=== PATIENT | female | born 1960 | race Caucasian/White ===

== ENCOUNTER 2017-09-30 00:12 | Emergency (ER) | payer MEDICAID ==
[~2017-09-30] VITALS: Ht 157.5 cm; Wt 71.4 kg
[2017-09-30 00:21] VITALS: Ht 157.5 cm; Wt 71.4 kg
[2017-09-30 00:49] LABS: BASOPHIL % 0.4 % (0-2); PLATELET COUNT 257 x10^3mcL (130-400); RED CELL DISTRIBUTION WIDTH 13.6 % (11.5-14.5)
[2017-09-30 01:08] LABS: CALCIUM 8.8 mg/dL (8.5-10.1); CHLORIDE SERUM 107 mmol/L (98-107); CREATININE SERUM 0.8 mg/dL (0.6-1.0); GFR1 > 60 mL/min; GLUCOSE SERUM 150 mg/dL (74-106); SODIUM SERUM 141 mmol/L (136-145)
[2017-09-30 01:26] LABS: ALBUMIN 3.6 g/dL (3.4-5.0); ALKALINE PHOSPHATASE 72 U/L (46-116); ALT/SGPT 28 U/L (14-59); AST/SGOT 14 U/L (15-37); BILIRUBIN TOTAL 0.56 mg/dL (0.20-1.00); TOTAL PROTEIN, SERUM 7.3 g/dL (6.4-8.2); URIC ACID 4.8 mg/dL (2.6-6.0)
[2017-09-30 01:27] LABS: POTASSIUM SERUM 3.4 mmol/L (3.5-5.1)
[2017-09-30 04:15] VITALS: BP 163/92
== END 2017-09-30 04:15 | disposition home or self-care (01) ==
LOC: ED 00:12
PROVIDERS: Emergency Medicine
DX: N23 Unspecified renal colic (principal)
CPT/HCPCS: J1885; J7030; Q0162

== ENCOUNTER 2019-07-04 01:52 | Emergency (ER) | payer MEDICAID ==
[~2019-07-04] VITALS: Ht 160 cm; Wt 65.3 kg
[2019-07-04 01:56] VITALS: Ht 160 cm; Wt 65.3 kg
[2019-07-04 02:24] LABS: PLATELET COUNT 288 x10^3mcL (130-400); RED CELL DISTRIBUTION WIDTH 12.1 % (11.5-14.5)
[2019-07-04 02:33] LABS: CALCIUM 8.8 mg/dL (8.5-10.1); CARBON DIOXIDE 26.4 mmol/L (21-32); CHLORIDE SERUM 107 mmol/L (98-107); CREATININE SERUM 0.6 mg/dL (0.6-1.0); GFR1 > 60 mL/min; GLUCOSE SERUM 141 mg/dL (74-106); POTASSIUM SERUM 3.6 mmol/L (3.5-5.1); SODIUM SERUM 143 mmol/L (136-145)
[2019-07-04 02:46] LABS: ALKALINE PHOSPHATASE 71 U/L (46-116); ALT/SGPT 25 U/L (14-59); AST/SGOT 15 U/L (15-37); BILIRUBIN TOTAL 0.22 mg/dL (0.20-1.00); CHOLESTEROL 184 mg/dL (<200); CHOLESTEROL/HDL RATIO 3.8; HDL CHOLESTEROL 48 mg/dL (40-60); LIPASE 133 IU/L (73-393); T3 TOTAL 0.82 ng/mL; TOTAL PROTEIN, SERUM 7.4 g/dL (6.4-8.2); TRIGLYCERIDES 145 mg/dL (<150)
[2019-07-04 02:47] LABS: ALBUMIN 3.3 g/dL (3.4-5.0)
[2019-07-04 02:56] LABS: FREE T4 1.24 ng/dL (0.76-1.46); FREE THYROXINE INDEX 3.4 ug/dL (1.4-4.5); T4(THYROXINE) 9.7 ug/dL (4.7-13.3)
[2019-07-04 04:03] LABS: UA SPECIFIC GRAVITY 1.015 (1.005-1.035); microscopic required? YES; urine erythrocyte 3+ (NEGATIVE)
[2019-07-04 05:31] VITALS: BP 148/76
== END 2019-07-04 05:34 | disposition home or self-care (01) ==
LOC: ED 01:52
PROVIDERS: Specialist
DX: N20.0 Calculus of kidney (principal)
CPT/HCPCS: 83880; 84439; J1885; J2405; J3010; Q0092; Q9967